=== PATIENT | male | born 1990 | race African-American/Black ===

== ENCOUNTER 2025-04-06 05:25 | Emergency (ER) | payer SELFPAY ==
[2025-04-06] MEDS ORDERED: cloNIDine 0.1 MG TAB ONE (05:46)
== END 2025-04-06 06:00 | disposition home or self-care (01) ==
LOC: BURERS 05:25
DX: I10 Essential (primary) hypertension (principal); I25.2 Old myocardial infarction
CPT/HCPCS: 99283